=== PATIENT | female | born 1950 | race Caucasian/White ===

== ENCOUNTER → 2021-03-15 | Emergency (ER) | payer OTHER ==
[~2021-03-15] VITALS: Ht 160 cm; Wt 67.1 kg
[~2021-03-15] MED LIST: COZAAR25 MG; LIPITOR20 MG; SYNTHROID50 MCG
== END | disposition home or self-care (01) ==
LOC: ER 13:21
DX: S63.286A Dislocation of proximal interphalangeal joint of right little finger, initial encounter (principal); S61.216A Laceration without foreign body of right little finger without damage to nail, initial encounter; W18.09XA Striking against other object with subsequent fall, initial encounter; Y93.89 Activity, other specified; Y92.838 Other recreation area as the place of occurrence of the external cause; Y99.8 Other external cause status